=== PATIENT | male | born 1995 | race African-American/Black ===

== ENCOUNTER 2017-12-23 01:33 | Emergency (ER) | payer MEDICAID ==
[~2017-12-23] VITALS: Ht 177.8 cm; Wt 79.0 kg
[2017-12-23] MEDS ORDERED: MORPHINE SULFATE 4 MG/ML CPJ (NOT FOR IM USE) IV STA (02:02)
[2017-12-23] MEDS ORDERED: SODIUM CHLORIDE 0.9% 1,000 ML IV ONE (02:02)
[2017-12-23] MEDS ORDERED: ONDANSETRON HCL 4MG/2ML VIAL IV STA (02:02)
[2017-12-23] MEDS ORDERED: CEFAZOLIN 1000MG PREMIX 50 ML IV ONE (02:15)
[2017-12-23] MEDS ORDERED: LIDOCAINE HCL 1% 20ML VIAL (Pyxis) INJ INJ ONE (02:15)
[2017-12-23] MEDS ORDERED: BACITRACIN ZINC OINT UDPKT TOP ONE (02:15)
[2017-12-23] MEDS ORDERED: TETANUS, DIPHTHERIA, PERTUSSIS VAC/PF 0.5ML (>7YR OLD) IM ONE (02:15)
[2017-12-23 04:38] VITALS: BP 134/85
== END 2017-12-23 05:28 | disposition home or self-care (01) ==
LOC: ER 01:33
DX: S09.93XA Unspecified injury of face, initial encounter (principal); S09.90XA Unspecified injury of head, initial encounter; S19.9XXA Unspecified injury of neck, initial encounter; Z23 Encounter for immunization; M25.539 Pain in unspecified wrist; J34.2 Deviated nasal septum
CPT/HCPCS: 12002; 70450; 70486; 71045; 72125; 73130; 90471; 90715; 96365; 96375; 99291; J0690; J2270; J2405; J3490; J7030; Z7610

== ENCOUNTER 2018-01-08 10:20 | Emergency (ER) | payer MEDICAID ==
[~2018-01-08] VITALS: Ht 180.3 cm; Wt 77.0 kg
[2018-01-08 10:35] VITALS: BP 122/68
== END 2018-01-08 12:51 | disposition home or self-care (01) ==
LOC: ER 10:58
DX: S01.01XD Laceration without foreign body of scalp, subsequent encounter (principal); F12.10 Cannabis abuse, uncomplicated; X58.XXXD Exposure to other specified factors, subsequent encounter
CPT/HCPCS: 99281; Z7610

== ENCOUNTER 2019-07-05 10:31 | Emergency (ER) | payer MEDICAID ==
[~2019-07-05] VITALS: Ht 175.3 cm; Wt 82.0 kg
[2019-07-05 10:41] VITALS: BP 129/86
[2019-07-05] MEDS ORDERED: LIDOCAINE 1%/EPI 1:100,000 10 ML VIAL IJ ONE (12:30)
[2019-07-05] MEDS ORDERED: BACITRACIN ZINC OINT UDPKT TOP ONE (12:30)
[2019-07-05] MEDS ORDERED: TETANUS, DIPHTHERIA, PERTUSSIS VAC/PF 0.5ML (>7YR OLD) IM ONE (12:30)
== END 2019-07-05 12:05 | disposition home or self-care (01) ==
LOC: ER 10:31
DX: M25.512 Pain in left shoulder (principal); F12.10 Cannabis abuse, uncomplicated
CPT/HCPCS: 99283; J3490